=== PATIENT | male | born 1970 | race Caucasian/White ===

== ENCOUNTER 2016-10-02 04:23 | Inpatient (IN) | payer BC ==
[2016-09-23 11:55] LABS: HEMATOCRIT 43.3 % (40.0-51.0); HEMOGLOBIN 15.7 g/dL (13.6-17.8)
--- NOTE | ~2016-10-02 | OP ---
Record Of Operation [facility] [address] [place]. [address] NAME: CHERYL HODGSON : 68 STATUS : ADM IN PAT#: [id number] AGE: 45 ADM/REG DATE : 10/02/16 MR#: [id number] REPORT SERV DATE: 10/02/16 DICTATED BY: JOSE DANIEL PIMENTEL II DATE: 10/02/16 REPORT STATUS : Draft TRANSCRIBED BY: MODL DATE: 10/02/16 DATE OF PROCEDURE: 10/02/2016 ATTENDING CO-SURGEON: Jose Daniel Pimentel M.D. SECOND ATTENDING CO-SURGEON: Armaan Chapa M.D. PREOPERATIVE DIAGNOSIS: Severe degenerative disk disease with spondylolisthesis at L4-L5. POSTOPERATIVE DIAGNOSIS: Severe degenerative disk disease with spondylolisthesis at L4-L5. PROCEDURES: 1. Anterior exposure of the lumbar spine. 2. Anterior lumbar interbody fusion with instrumentation at L4-L5. ANESTHESIA: General. ESTIMATED BLOOD LOSS: 100 mL. Please note, I am a co-surgeon. I am dictating a portion of the note. Remaining portion is found in a note by Dr. Chapa. DETAILS OF THE PROCEDURE: The patient was taken to the operating room and placed in supine position on table. General anesthesia was achieved. Protective padding and a lumbar roll were placed. We then prepped and draped in a sterile fashion. An incision was made to the left of the umbilicus. The rectus sheath on the left side was opened along the length of the incision and the rectus muscle was retracted laterally. We entered the preperitoneal space and bluntly dissected into the retroperitoneal space and swept the peritoneum, the ureter, and abdominal contents to the right to expose the aorta and iliac vessels. We carefully dissected along the lateral aspect of the aorta and mobilized this to the right and ligated this segmental vessels at L4-L5. With continued careful dissection, we completely mobilized the vessels and exposed L4-L5 and we marked this with x-ray. A diskectomy with graft replacement and instrumentation was performed. Please see Dr. Chapa's notes for details of this. Once x-ray confirmed adequate placement, we inspected the retroperitoneum. It was hemostatic. The ureter was intact. We removed the retractors and allowed the abdominal contents to return to their normal anatomic position. We closed using running PDS and interrupted Vicryl. The skin was closed with Monocryl. At the end of the procedure, the patient was stable. FRANCHESCA/EDMOND Jose Daniel Pimentel II, M.D. Record Of Operation [address] [place]. [address] NAME: PRASHANTYAACHERYL GARCIA : 68 STATUS : ADM IN PAT#: [id number] AGE: 45 ADM/REG DATE : 10/02/16 MR#: [id number] REPORT SERV DATE: 10/02/16 DICTATED BY: JOSE DANIEL PIMENTEL II DATE: 10/02/16 REPORT STATUS : Draft TRANSCRIBED BY: EDMOND DATE: 10/02/16 / [id number] CC: Armaan Chapa II, M.D.
--- NOTE | ~2016-10-02 | OP ---
Record Of Operation [facility] [address] [place]. [address] NAME: CHERYL HODGSON : 68 STATUS : ADM IN PAT#: [id number] AGE: 45 ADM/REG DATE : 10/02/16 MR#: [id number] REPORT SERV DATE: 10/03/16 DICTATED BY: TAVARES CHAPA II DATE: 10/03/16 REPORT STATUS : Draft TRANSCRIBED BY: MODL DATE: 10/03/16 DATE OF PROCEDURE: 10/02/2016 PREOPERATIVE DIAGNOSES: 1. Discogenic low back pain with right lower extremity radiculopathy. 2. Multilevel mild degenerative changes. 3. Severe discogenic changes, L4-L5 with L4-5 stenosis. POSTOPERATIVE DIAGNOSES: 1. Discogenic low back pain with right lower extremity radiculopathy. 2. Multilevel mild degenerative changes. 3. Severe discogenic changes, L4-L5 with L4-5 stenosis. PROCEDURES: Stage I (anterior) 1. L4-L5 anterior interbody arthrodesis. 2. Application of prosthetic device, L4-L5. 3. Anterior instrumentation, L4-L5. 4. Use of allograft substitute. Stage II (posterior) 1. Posterior L4-L5 arthrodesis. 2. Posterior nonsegmental instrumentation, L4-L5. 3. Use of bone morphogenic protein and allograft substitute. 4. Use of the stereotactic guidance system. SURGEON: Tavares Chapa M.D., (Dr. Willoughby was the co-surgeon for the anterior interbody arthrodesis). FLUIDS REPLACED: 1 L lactated Ringer's. ESTIMATED BLOOD LOSS: 150 mL. DRAINS: No drains. COMPLICATIONS: No complications. ANTIBIOTIC: Preoperatively. IMPLANTS: Globus, anterior; Alphatec, posterior. PREOPERATIVE HISTORY: This is a very friendly 45-year-old gentleman, who is in the construction field. He has unfortunately not been able to work for over a year because of his significant back pain. He does have some degenerative changes at L2-3 and L3-4 and much less so at L5-S1. However, L4-5 demonstrates significant Modic changes and stenosis at L4- 5. Overall, we discussed the pros and cons of continuing nonoperative care versus surgery. I did not favor a three-level fusion on him because of his age as well as his hopefulness to return to some form of employment in the construction area. We discussed the fact that Record Of Operation [facility] [address] [place]. [address] NAME: CHERYL HODGSON : 68 STATUS : ADM IN PAT#: [id number] AGE: 45 ADM/REG DATE : 10/02/16 MR#: [id number] REPORT SERV DATE: 10/03/16 DICTATED BY: TAVARES CHAPA II DATE: 10/03/16 REPORT STATUS : Draft TRANSCRIBED BY: MODL DATE: 10/03/16 surgery may allow him to return to work, and unfortunately, it is difficult to predict, he may not be able to return to that particular type of job. We discussed the risks of surgery. We discussed the rates of success versus failure of the surgery to decrease back pain and leg pain respectively. We discussed the risks, which include, but not limited to, pulmonary embolus, DVT, excessive bleeding as well as the potential need for blood transfusion. We discussed unfortunately that he will probably need some amount of surgery down the road likely to adjacent degeneration. DESCRIPTION OF PROCEDURE: After informed consent was obtained, the patient was brought to the operating room at his request and general anesthesia achieved. He was placed in the supine position. The abdomen was prepped and draped in a sterile fashion. The retroperitoneal exposure was now performed by Dr. Willoughby. Please see his dictation for details. Under loupe magnification head lamp, the L4-5 level was identified and confirmed radiographically, followed by use of the knife for the discectomy. The disc space did appear to be moderately hypermobile from the degeneration. The disc space was distracted, followed by endplate preparation following discectomy. Punctate bleeding bone was identified. The posterior osteophytes were partially removed. The prosthetic device was then trialed and placed. This contained bone morphogenic protein and allograft substitute. Excellent fit was obtained. Next, the anterior instrumentation was applied. This was a separate plate and screw construct, and two screws were applied to L4 and L5. Multiplanar imaging confirmed acceptable placement of the implant. Following standard closure by Dr. Willoughby, the patient was turned to the prone position, and the back was prepped and draped in a sterile fashion. The stereotactic spinal pin was placed into the left iliac crest and the intraoperative CT scan completed. Stereotactic guidance was then used throughout the case. Next, we then performed a minimally invasive incision on the right at L4-5. Due to the significant disc space distraction, I did not feel a formal facetectomy was required. At this point, the facet capsule was removed and the facet decorticated, followed by placement of allograft substitute. Next, the stereotactic guidance was then used to place a 7.5 mm diameter screw into L4 and L5. A repeat CT scan confirmed acceptable placement of the implants. The amy was then final tightened. Hemostasis was confirmed and standard closure performed, and the patient was then extubated and transferred to PACU in stable condition. MELAV/EDMOND Tavares Chapa II, M.D. / [id number]
[~2016-10-02 04:23] MED LIST: OXYCON10 PO
[2016-10-04] MEDS ORDERED: OXYCON20 PO (10:26)
[2016-10-04] MEDS ORDERED: ASAB PO (10:27)
[2016-10-04] MEDS ORDERED: ROXICODONE15 MG PO (10:27)
[2016-10-04] MEDS ORDERED: V5 PO (10:27)
== END 2016-10-04 20:10 | disposition home or self-care (01) | DRG 455 ==
LOC: SDC/OF 04:23 → PACU 10:41 → 3SO 11:46
PROVIDERS: Orthopaedic Surgery
PROC: 4A11X4G Monitoring of Peripheral Nervous Electrical Activity, Intraoperative, External Approach (ICD-10-PCS; 2016-10-02)
PROC: 0SG00A0 Fusion of Lumbar Vertebral Joint with Interbody Fusion Device, Anterior Approach, Anterior Column, Open Approach (ICD-10-PCS; principal; 2016-10-02 05:45)
PROC: 0SG0071 Fusion of Lumbar Vertebral Joint with Autologous Tissue Substitute, Posterior Approach, Posterior Column, Open Approach (ICD-10-PCS; 2016-10-02 05:45)
DX: M51.16 Intervertebral disc disorders with radiculopathy, lumbar region (principal); I10 Essential (primary) hypertension; E66.9 Obesity, unspecified; Z68.32 Body mass index [BMI] 32.0-32.9, adult
CPT/HCPCS: 36415; 82962; 85014; 85018; 86850; 86900; 86901; 87641; 88304; 88311; 90686; 97116-GP; 97161-GP; A9270-GY; C1713; G0008; J0360; J0690; J1170; J1644; J1885; J2250; J2405; J2710; J2795; J3010